=== PATIENT | female | born 1955 | race Caucasian/White ===

== ENCOUNTER 2019-03-04 11:30 | Emergency (ER) | payer OTHER, MEDICAID ==
[~2019-03-04] VITALS: Ht 152.4 cm; Wt 68.5 kg
--- NOTE | 2019-03-04 11:50 | NUR ---
PATIENT BIB W/C TO ER BED 5.
[2019-03-04 12:00] VITALS: BP 139/43
--- NOTE | 2019-03-04 12:12 | NUR ---
BIB RESEARCH AND DEVELOPMENT SCIENTIST FROM [facility] WITH C/O RT FOOT HEMATOMA AND BL LOWER/UPPER EXTREMITY RASH X 3 WKS. DENIES INJURY OR SOB HX; PROFOUND INTELLECTUAL DISABILITY, ENCEPHALOPATHY, SPASTIC QUAD, SEIZURE, FEMUR FX RX; ASA, FE SULFATE, LEVOTHYROXIN - . DENIES N/V/D; SKIN IS PINK/WARM/DRY; AWAKE,ALERT. LUNGS CLEAR BL; HR EVEN AND REGULAR; PT DENIES ANY FEVER, CP, SOB, OR COUGH AT THIS TIME; VSS; PATIENT POSITIONED FOR COMFORT; HOB ELEVATED; BEDRAILS UP X2; BED DOWN. ER MD MADE AWARE OF PT STATUS. CAREGIVER AT BEDSIDE.
--- NOTE | 2019-03-04 12:44 | NUR ---
liquified natural gas technician at bedside.
--- NOTE | 2019-03-04 12:51 | NUR ---
DR. BENEDICT BEDSIDE WITH PT
[2019-03-04 13:25] LABS: BASOPHILS # (AUTO) 0.1 K/uL (0.00-0.22); BASOPHILS % (AUTO) 0.5 % (0.0-2.0); EOSINOPHILS # (AUTO) 0.1 K/uL (0-0.4); EOSINOPHILS % (AUTO) 0.5 % (0.0-4.0); HEMATOCRIT 31.6 % (36-48); HEMOGLOBIN 10.5 g/dL (12.0-16.0); LYMPHOCYTES % (AUTO) 24.9 % (20.5-51.1); MEAN CORPUSCULAR HEMOGLOBIN 31 pg (27-31); MEAN CORPUSCULAR HGB CONC 33 g/dL (33-37); MONOCYTES % (AUTO) 8.2 % (1.7-9.3); NEUTROPHILS # (AUTO) 7.9 K/uL (1.8-7.7); NEUTROPHILS % (AUTO) 65.9 % (42.2-75.2); PLATELET COUNT (AUTO) 316 K/uL (140-450); RED CELL DISTRIBUTION WIDTH 13.6 % (11.6-13.7)
[2019-03-04 13:30] LABS: ANION GAP 10.5 (8-16); CARBON DIOXIDE 27.9 mmol/L (21-32); CREATININE 0.5 mg/dL (0.6-1.3); POTASSIUM 4.4 mmol/L (3.5-5.1)
[2019-03-04 13:36] LABS: ALBUMIN 2.4 g/dL (3.4-5.0); TOTAL BILIRUBIN 0.1 mg/dL (0.0-1.0)
--- NOTE | 2019-03-04 14:00 | NUR ---
PATIENT RESTING AT THIS TIME; NO SIGNS OF DISTRESS.
[2019-03-04 15:17] LABS: APPEARANCE,URINE CLEAR (CLEAR); BILIRUBIN,URINE NEGATIVE (NEGATIVE); BLOOD, URINE 1+ (NEGATIVE); COLOR,URINE YELLOW (YELLOW); LEUKOCYTE ESTERASE ,URINE NEGATIVE (NEGATIVE); NITRITE, URINE NEGATIVE (NEGATIVE); PH,URINE 7.5 (5.0-9.0); UGLUCOSE NEGATIVE (NEGATIVE)
[2019-03-04 15:39] LABS: WBC,URINE 0-5 /HPF (0-5)
--- NOTE | 2019-03-04 16:30 | NUR ---
PATIENT RESTING AT THIS TIME. NO SIGNS OF DISTRESS.
[2019-03-04 17:35] VITALS: BP 127/88
--- NOTE | 2019-03-04 17:35 | NUR ---
Patient discharged with v/s stable. Written and verbal after care instructions given and explained. Patient verbalized understanding. Ambulatory with steady gait. All questions addressed prior to discharge. Advised to follow up with PMD.
== END 2019-03-04 17:35 | disposition home or self-care (01) ==
LOC: MED 11:30
DX: M79.671 Pain in right foot (principal); R21 Rash and other nonspecific skin eruption; M79.89 Other specified soft tissue disorders
CPT/HCPCS: 36415; 73630; 80053; 81001; 84443; 85025; 85730; 93970; 99284; Q0092

== ENCOUNTER 2020-04-02 12:50 | Emergency (ER) | payer OTHER, MEDICAID ==
[~2020-04-02] VITALS: Ht 152.4 cm; Wt 67.1 kg
[2020-04-02 12:59] VITALS: BP 122/54
--- NOTE | 2020-04-02 13:10 | NUR ---
WAIT AT LOBBY.
--- NOTE | 2020-04-02 13:28 | NUR ---
PT BIB CAREGIVER ON WHEELCHAIR TO BED 7.
--- NOTE | 2020-04-02 13:41 | NUR ---
65 Y/F PRESENTS TO ED WITH CAREGIVER FOR R THIGH ABCESS X 10 DAYS. CAREGIVER REPORTS IT STARTED DRAINING ON THURSDAY, BROWN DISCHARGE. PT WAS GIVEN ATB OF BACTRIM BY HOME HEALTH MD ON 03/27, LAST DOSE IS TOMORROW. WOUND IS ABOUT 4CM DEEP. WARM TO TOUCH, ERYTHEMA AROUND ABCESS. CAREGIVER DENIES ANY N/F/V/ CHILLS, SOB. PMH- SEVERE ID, ENCEPHALOPATHY, CONSTIPATION, SEIZURE, H/O PNEUMONIA, QUADRIPLEGIA, MILD ASPIRATION RISK, MYOPIA ALLERGIES-PHENOBARBITAL Addendum: 04/02/20 at 1342 by MED HARDENING NOTED AROUND ABCESS.
--- NOTE | 2020-04-02 13:47 | NUR ---
DR PAUL AT BEDSIDE EVALUATING PATIENT.
[2020-04-02] MEDS ORDERED: BACITRACIN OINT 500 UNITS/GM PKT TP ONE ×3 (13:50→14:00)
--- NOTE | 2020-04-02 13:51 | NUR ---
ISLAND DRESSING PLACED OVER PT WOUND ON R THIGH AFTER BACITRACIN APPLIED.
[2020-04-02 14:05] VITALS: BP 122/54
--- NOTE | 2020-04-02 14:05 | NUR ---
Patient discharged with v/s stable. Written and verbal after care instructions given and explained. Patient alert, oriented and verbalized understanding of instructions. Wheel Chair Assisted with by caregiver. All questions addressed prior to discharge. ID band removed. Patient advised to follow up with PMD. Rx of KEFLEX AND BACITRACIN given. Patient educated on indication of medication including possible reaction and side effects. Opportunity to ask questions provided and answered.
== END 2020-04-02 14:05 | disposition home or self-care (01) ==
LOC: MED 12:50
DX: L02.91 Cutaneous abscess, unspecified (principal); R56.9 Unspecified convulsions; Z88.8 Allergy status to other drugs, medicaments and biological substances
CPT/HCPCS: 99282

== ENCOUNTER 2020-07-12 12:51 | Emergency (ER) | payer OTHER, MEDICAID ==
[~2020-07-12] VITALS: Ht 152.4 cm; Wt 72.6 kg
[2020-07-12 12:58] VITALS: BP 127/51
--- NOTE | 2020-07-12 13:09 | NUR ---
PATIENT ASSISTED TO BED 5 VIA WHEELCHAIR.
--- NOTE | 2020-07-12 14:03 | NUR ---
C/O CHRONIC R KNEE PAIN POST BREAK MANY YEARS AGO. NO SWELLING OR DEFORMITY NOTED. CAREGIVER GAVE TYLENOL THIS AM. STATES PT HAD PAIN RELIEF FOR 2 HOURS AND THEN PAIN RETURNED. PT ALSO HAS HEALING WOUND THAT IS RED IN APPEARANCE TO UPPER R THIGH. CAREGIVER ADDS REDNESS & SWELLING TO RIGHT MIDDLE FINGER X TODAY. UNKNOWN CAUSE. PT FROM SNF WITH CAREGIVER. MENTAL DISABILITY, SEIZURE DISORDER, QUAD, WHEELCHAIR BOUND, FOOT ULCERS, ...
[2020-07-12] MEDS ORDERED: IBUPROFEN 600 MG TAB PO ONE (14:05)
--- NOTE | 2020-07-12 14:06 | NUR ---
FLACC 4
--- NOTE | 2020-07-12 14:20 | NUR ---
RAD AT BEDSIDE
[2020-07-12] MEDS ORDERED: CRUSHER, PILL MC ONE (14:21)
--- NOTE | 2020-07-12 14:33 | NUR ---
LAB AT BEDSIDE
[2020-07-12 14:51] LABS: BASOPHILS # (AUTO) 0.1 K/uL (0.00-0.22); BASOPHILS % (AUTO) 0.6 % (0.0-2.0); EOSINOPHILS # (AUTO) 0.1 K/uL (0-0.4); EOSINOPHILS % (AUTO) 0.4 % (0.0-4.0); HEMATOCRIT 36.1 % (36-48); HEMOGLOBIN 12.2 g/dL (12.0-16.0); LYMPHOCYTES # (AUTO) 4.1 K/uL (2.5-16.5); LYMPHOCYTES % (AUTO) 32.2 % (20.5-51.1); MEAN CORPUSCULAR HEMOGLOBIN 32 pg (27-31); MEAN CORPUSCULAR HGB CONC 34 g/dL (33-37); MEAN CORPUSCULAR VOLUME 96.1 fL (80-94); MONOCYTES # (AUTO) 1.1 K/uL (0.8-1.0); MONOCYTES % (AUTO) 8.9 % (1.7-9.3); NEUTROPHILS # (AUTO) 7.4 K/uL (1.8-7.7); NEUTROPHILS % (AUTO) 57.9 % (42.2-75.2); PLATELET COUNT (AUTO) 288 K/uL (140-450); RED BLOOD CELL COUNT(AUTO) 3.76 MIL/uL (4.20-5.40); RED CELL DISTRIBUTION WIDTH 13.5 % (11.6-13.7); WHITE BLOOD COUNT (AUTO) 12.8 K/uL (4.8-10.8)
--- NOTE | 2020-07-12 14:55 | NUR ---
MOTRIN PO CRUSHED AND ADMINISTERED WITH APPLESAUCE
[2020-07-12 15:04] LABS: ANION GAP 13.8 (8-16); CARBON DIOXIDE 25.5 mmol/L (21-32); CREATININE 0.8 mg/dL (0.6-1.3); POTASSIUM 4.3 mmol/L (3.5-5.1)
--- NOTE | 2020-07-12 15:48 | NUR ---
JOSIAH BURRISR, PAIN 01/09
[2020-07-12 15:53] VITALS: BP 130/67
--- NOTE | 2020-07-12 15:53 | NUR ---
Patient discharged with v/s stable. Written and verbal after care instructions given and explained. Patient alert, oriented and verbalized understanding of instructions. Wheel Chair Assisted with by caregiver. All questions addressed prior to discharge. ID band removed. Patient advised to follow up with PMD. Rx of MOTRIN AND CEPHALEXIN given. Patient educated on indication of medication including possible reaction and side effects. Opportunity to ask questions provided and answered. CAREGIVER SIGNED DISCHARGE PAPERWORK
== END 2020-07-12 15:53 | disposition home or self-care (01) ==
LOC: MED 12:51
DX: L03.011 Cellulitis of right finger (principal); M25.561 Pain in right knee; L98.499 Non-pressure chronic ulcer of skin of other sites with unspecified severity; R25.2 Cramp and spasm
CPT/HCPCS: 36415; 73562; 80048; 85025; 86140; 99284; Q0092

== ENCOUNTER 2020-11-10 10:31 | Emergency (ER) | payer OTHER, MEDICAID ==
[~2020-11-10] VITALS: Ht 157.5 cm; Wt 90.7 kg
[2020-11-10 10:47] VITALS: BP 112/79
--- NOTE | 2020-11-10 10:58 | NUR ---
Dr. Javed at pt bedside.
--- NOTE | 2020-11-10 11:05 | NUR ---
Pt bib vessel scrapper for high BP, pulse 169/82 at home per caregiver, and headache since 0500 today. medhx: ID, encephalopathy, seizure NKA
[2020-11-10] MEDS ORDERED: NACL 0.9% 1,000 ML IV SCH (11:25)
--- NOTE | 2020-11-10 11:50 | NUR ---
EMT at bedside for EKG.
--- NOTE | 2020-11-10 11:58 | NUR ---
agricultural technical officer at pt bedside.
--- NOTE | 2020-11-10 12:04 | NUR ---
business technology analyst at pt bedside.
--- NOTE | 2020-11-10 12:28 | NUR ---
Pt taken via chancerfran to XR
[2020-11-10 12:43] LABS: BASOPHILS % (AUTO) 0.5 % (0.0-2.0); EOSINOPHILS % (AUTO) 0.4 % (0.0-4.0); HEMATOCRIT 40.1 % (36-48); HEMOGLOBIN 13.3 g/dL (12.0-16.0); LYMPHOCYTES # (AUTO) 3.1 K/uL (2.5-16.5); LYMPHOCYTES % (AUTO) 34.8 % (20.5-51.1); MEAN CORPUSCULAR HEMOGLOBIN 32 pg (27-31); MEAN CORPUSCULAR HGB CONC 33 g/dL (33-37); MEAN CORPUSCULAR VOLUME 95.9 fL (80-94); MONOCYTES # (AUTO) 0.6 K/uL (0.8-1.0); MONOCYTES % (AUTO) 6.9 % (1.7-9.3); NEUTROPHILS # (AUTO) 5.1 K/uL (1.8-7.7); NEUTROPHILS % (AUTO) 57.4 % (42.2-75.2); PLATELET COUNT (AUTO) 280 K/uL (140-450); RED BLOOD CELL COUNT(AUTO) 4.18 MIL/uL (4.20-5.40); RED CELL DISTRIBUTION WIDTH 13.2 % (11.6-13.7); WHITE BLOOD COUNT (AUTO) 8.9 K/uL (4.8-10.8)
[2020-11-10 13:24] LABS: ANION GAP 10.7 (8-16); CARBON DIOXIDE 29.8 mmol/L (21-32); CREATININE 0.6 mg/dL (0.6-1.3); POTASSIUM 4.5 mmol/L (3.5-5.1); TOTAL BILIRUBIN 0.2 mg/dL (0.0-1.0)
[2020-11-10] MEDS ORDERED: MORPHINE SULFATE 4 MG/ML SYR IVP ONE (14:10)
--- NOTE | 2020-11-10 14:37 | NUR ---
Pt resting, eyes closed, visible equal and rise of chest, VSS, will continue to monitor. Pt caregiver at bedside.
[2020-11-10 15:32] VITALS: BP 139/52
--- NOTE | 2020-11-10 15:33 | NUR ---
Patient discharged with v/s stable. Written and verbal after care instructions given and explained. Patient alert, oriented and verbalized understanding of instructions. Wheel Chair Assisted with by caregiver. All questions addressed prior to discharge. ID band removed. Patient advised to follow up with PMD. Rx of norco 5mg-325mg 1 to 2 tab q6h PO, and motrin 800mg tab TID PO given. Patient educated on indication of medication including possible reaction and side effects. Opportunity to ask questions provided and answered.
[2020-11-10 23:28] LABS: APPEARANCE,URINE HAZY (CLEAR); BILIRUBIN,URINE NEGATIVE (NEGATIVE); BLOOD, URINE 3+ (NEGATIVE); COLOR,URINE YELLOW (YELLOW); LEUKOCYTE ESTERASE ,URINE NEGATIVE (NEGATIVE); NITRITE, URINE NEGATIVE (NEGATIVE); UGLUCOSE NEGATIVE (NEGATIVE)
[2020-11-10 23:45] LABS: RBC,URINE 50-80 /HPF (0-5)
== END 2020-11-10 15:33 | disposition home or self-care (01) ==
LOC: MED 10:31
DX: R51.9 Headache, unspecified (principal); I10 Essential (primary) hypertension; Z88.8 Allergy status to other drugs, medicaments and biological substances
CPT/HCPCS: 36415; 70450; 71045; 80053; 81001; 83605; 83880; 84484; 85025; 87040; 87086; 93005; 96374; 99285; J2270

== ENCOUNTER 2022-11-19 09:46 | Inpatient (IN) | payer OTHER, MEDICAID ==
[~2022-11-19] VITALS: Ht 162.6 cm; Wt 84.8 kg
--- NOTE | 2022-11-19 09:47 | NUR ---
BIBA BLS TO ER BED 4
[2022-11-19] MEDS ORDERED: ACETAMINOPHEN EXTRA STRENGTH 500 MG TAB PO ONE (09:55)
[2022-11-19 09:56] VITALS: BP 118/72
--- NOTE | 2022-11-19 10:21 | NUR ---
PT WAS TAKEN TO CT.
--- NOTE | 2022-11-19 10:48 | NUR ---
CT DONE. TRIED TO MEDICATE PT. PT REFUSED. PLUS, PT WILL NO FOLLOW COMMAND, MAY CHOCK.
[2022-11-19] MEDS ORDERED: LIDOCAINE/EPI 2% 1:100000 20 ML VIAL INJ ONE (11:15)
[2022-11-19] MEDS ORDERED: MORPHINE SULFATE 4 MG/ML SYR IVP ONE ×2 (11:20→14:45)
[2022-11-19] MEDS ORDERED: ONDANSETRON 4 MG/2 ML VIAL IVP ONE ×2 (11:20→14:45)
[2022-11-19] MEDS ORDERED: LORazepam 2 MG/ML VIAL IVP ONE (12:20)
[2022-11-19] MEDS ORDERED: HALOPERIDOL IM 5 MG/ML VIAL IVP ONE (12:20)
[2022-11-19] MEDS ORDERED: diphenhydrAMINE 50 MG/ML VIAL IVP ONE (12:20)
[2022-11-19] MEDS ORDERED: HALOPERIDOL 5 MG TAB PO ONE (12:20)
[2022-11-19 12:49] LABS: HEMATOCRIT 38.3 % (36-48); HEMOGLOBIN 12.6 g/dL (12.0-16.0); MEAN CORPUSCULAR HEMOGLOBIN 32 pg (27-31); MEAN CORPUSCULAR HGB CONC 33 g/dL (33-37); MEAN CORPUSCULAR VOLUME 96.7 fL (80-94); PLATELET COUNT (AUTO) 241 K/uL (140-450); RED BLOOD CELL COUNT(AUTO) 3.96 MIL/uL (4.20-5.40); RED CELL DISTRIBUTION WIDTH 13.6 % (11.6-13.7); WHITE BLOOD COUNT (AUTO) 18.4 K/uL (4.8-10.8)
[2022-11-19 12:58] LABS: PROTHROMBIN TIME 9.6 secs (10.8-13.4)
[2022-11-19 13:04] LABS: ALBUMIN 2.9 g/dL (3.4-5.0); ANION GAP 16.1 (8-16); CARBON DIOXIDE 25.3 mmol/L (21-32); CREATININE 0.7 mg/dL (0.6-1.3); POTASSIUM 4.4 mmol/L (3.5-5.1); TOTAL BILIRUBIN 0.2 mg/dL (0.0-1.0)
[2022-11-19 13:12] LABS: LYMPHOCYTES % (MANUAL) 16 % (20-46)
[2022-11-19 13:13] LABS: MONOCYTES % (MANUAL) 1 % (5-12)
[2022-11-19] MEDS ORDERED: BACITRACIN OINT 500 UNITS/GM PKT TP ONE (13:35)
[2022-11-19] MEDS ORDERED: NON ADHERENT DRESSING TP SCH (13:35)
[2022-11-19] MEDS ORDERED: BACI-416 TP (13:43)
[2022-11-19] MEDS ORDERED: CEPH-588 PO (13:43)
[2022-11-19] MEDS ORDERED: ACET-10509 PO (13:43)
--- NOTE | 2022-11-19 14:21 | NUR ---
PT INITIALLY D/C'D HOME BY ED MD. BUT HR WAS HIGH 125. MD NOTIFIED. XRAY WAS ORDERED AND CONDUCTED BEDSIDE.
[2022-11-19] MEDS ORDERED: NACL 0.9% 1,000 ML IV ONE (14:35)
[2022-11-19] MEDS ORDERED: cefTRIAXone 1,000 MG VIAL ONE (14:52)
[2022-11-19 14:54] LABS: APPEARANCE,URINE CLEAR (CLEAR); BILIRUBIN,URINE NEGATIVE (NEGATIVE); BLOOD, URINE NEGATIVE (NEGATIVE); COLOR,URINE YELLOW (YELLOW); LEUKOCYTE ESTERASE ,URINE NEGATIVE (NEGATIVE); NITRITE, URINE NEGATIVE (NEGATIVE); UGLUCOSE NEGATIVE (NEGATIVE)
[2022-11-19] MEDS ORDERED: KCL 20 MEQ/WATER INJ PREMIX 200 ML IV PRN (15:00)
[2022-11-19] MEDS ORDERED: HYDROcodone/APAP 5/325 MG 1 TAB TAB PO PRN (15:00)
[2022-11-19] MEDS ORDERED: POTASSIUM CHLORIDE 10 MEQ TABER PO PRN (15:00)
[2022-11-19] MEDS ORDERED: ZOLPIDEM 5 MG TAB PO PRN (15:00)
[2022-11-19] MEDS ORDERED: ONDANSETRON 4 MG/2 ML VIAL IVP PRN (15:00)
[2022-11-19] MEDS ORDERED: MAG SULF 2000 MG/WATER PREMIX 50 ML IV PRN (15:00)
[2022-11-19] MEDS ORDERED: LEVE750T66 PO (15:33)
[2022-11-19] MEDS ORDERED: MAGN400S60 PO (15:33)
[2022-11-19] MEDS ORDERED: BISA-213 RC (15:33)
[2022-11-19] MEDS ORDERED: VALP-22 GT (15:33)
[2022-11-19] MEDS ORDERED: TRAM50TA3 PO (15:33)
[2022-11-19] MEDS ORDERED: LACO100T PO (15:33)
[2022-11-19] MEDS ORDERED: TRAZ-343 PO (15:33)
[2022-11-19] MEDS: NACL 0.9% 1,000 ML IV SCH (15:47)
--- NOTE | 2022-11-19 15:50 | NUR ---
PT GOT ROOM 121A. PT WAS SENT TO FLOOR IN [facility] WITH EMT, TADEO. REPORT ENDORSED BEDSIDE TO DEZ CULLEN.
[2022-11-19 16:00] VITALS: BP 124/67
--- NOTE | 2022-11-19 16:47 | NUR ---
RECEIVE REPORT FROM ER NURSE THAT PATIENT COME FROM [facility] FOR S/P FALL FROM HOLTER LEFT WITH NEW FRACTURE OF R.PATELLA, DISTAL HEAD OF TIBIAL & PROXIMAL FIBULAR SHIFT. PATIENT IS FULL CODE AND HAS HX OF CEREBRAL PALSY W/ PARAPLEGIA, ALLERGY TO PHENOBARBITAL, BED BOUND; FIRST DOSE OF UNASYN AND ROCEPHIN GIVEN IN ER., R.PIV AT r. UPPER ARM INFUSING NS @50ML/HR. ON REGULAR DIET, ALERT X0, TACHYCARDIA, ON ROOM AIR. WILL CONTINUE TO MONITOR
[2022-11-19] MEDS ORDERED: AMPICILLIN/SULBACTAM 3 GM in NACL 0.9% 100 ML IV SCH (18:00)
[2022-11-19] MEDS: AMPICILLIN/SULBACTAM 3 GM in NACL 0.9% 100 ML IV SCH (18:16)
--- NOTE | 2022-11-19 19:25 | NUR ---
RECEIVED ENDORSEMENT FROM DAY SHIFT NURSE FOR CONTINUITY OF CARE. PT IS ON BED SLEEPING BUT AROUSABLE ON STIMULI. NOTED LACERATION ON RIGHT FOREHEAD WITH STITCHES. DRY BLOOD NOTED IS COVERING A PARTS OF LACERATION. DINNER TRAYS ON BEDSIDE TABLE UNTOUCHED. OFFER DINNER FOOD TO PT, PT REFUSED, SHE TOOK A SMALL SPOON ONLY. SHE REFUSED ALL FOOD OFFERED. PT NOTED CONFUSED. PT IS WITH REGULAR DIET. IV LOCK IS ON LEFT UPPER ARM. RIGHT KNEE IS WRAP UP WITH DRY BANDAGE.
--- NOTE | 2022-11-19 19:32 | NUR ---
ENDORSE PATIENT TO PM SHIFT NURSE WHILE PATIENT IS REST IN BED, UNASYN GIVEN VIA PIV AT L. UPPER ARM ; CURRENT INFUSING NS @50ML/HR.
[2022-11-19 20:00] VITALS: BP 135/66
[2022-11-19] MEDS ORDERED: LEVETIRACETAM PO SCH (21:00)
[2022-11-19] MEDS ORDERED: traZODone 50 MG TAB PO PRN (21:00)
[2022-11-19] MEDS: levETIRAcetam 500 MG TAB PO SCH (21:05)
--- NOTE | 2022-11-19 21:05 | NUR ---
NIGHT MEDICATION ADMINISTERED, PT TOLERATES WELL. PT NOTED CONFUSED. NO FACIAL GRIMACING. NO SOB OR DISTRESS. PT BACK TO SLEEP AFTER TAKING THE MEDS.
[2022-11-20] VITALS: BP 138/83
[2022-11-20] MEDS: AMPICILLIN/SULBACTAM 3 GM in NACL 0.9% 100 ML IV SCH ×4 (00:34→18:29)
--- NOTE | 2022-11-20 00:34 | NUR ---
MIDNIGHT IV MEDICATION ADMINISTERED, PT IS ON STABLE CONDITION. TOLERATES WELL.
[2022-11-20] MEDS: NACL 0.9% 1,000 ML IV SCH ×2 (03:30→16:00)
[2022-11-20 04:00] VITALS: BP 129/63
--- NOTE | 2022-11-20 04:00 | NUR ---
PT ASLEEP. NO SOB OR DISTRESS.
[2022-11-20 06:13] LABS: ANION GAP 13.1 (8-16); CARBON DIOXIDE 27.1 mmol/L (21-32); CREATININE 0.6 mg/dL (0.6-1.3); POTASSIUM 4.2 mmol/L (3.5-5.1)
[2022-11-20] MEDS: ACETAMINOPHEN 325 MG TAB PO PRN ×2 (06:42→20:35)
--- NOTE | 2022-11-20 06:42 | NUR ---
PT COMPLAINTS OF HEADACHE, MEDICATION FOR HEADACHE ADMINISTERED ORDER.
--- NOTE | 2022-11-20 07:20 | NUR ---
PT IS ON STABLE CONDITION. ALL SAFETY MEASURES ARE IN PLACE. ENDORSED TO DAY SHIFT NURSE FOR CONTINUITY OF CARE
[2022-11-20 07:26] LABS: BASOPHILS % (AUTO) 0.3 % (0.0-2.0); EOSINOPHILS % (AUTO) 0.1 % (0.0-4.0); HEMATOCRIT 34.9 % (36-48); HEMOGLOBIN 11.6 g/dL (12.0-16.0); LYMPHOCYTES # (AUTO) 2.8 K/uL (2.5-16.5); LYMPHOCYTES % (AUTO) 27.2 % (20.5-51.1); MEAN CORPUSCULAR HEMOGLOBIN 33 pg (27-31); MEAN CORPUSCULAR HGB CONC 33 g/dL (33-37); MEAN CORPUSCULAR VOLUME 98.6 fL (80-94); MONOCYTES # (AUTO) 1.1 K/uL (0.8-1.0); MONOCYTES % (AUTO) 10.4 % (1.7-9.3); NEUTROPHILS # (AUTO) 6.3 K/uL (1.8-7.7); PLATELET COUNT (AUTO) 222 K/uL (140-450); RED BLOOD CELL COUNT(AUTO) 3.54 MIL/uL (4.20-5.40); RED CELL DISTRIBUTION WIDTH 13.8 % (11.6-13.7); WHITE BLOOD COUNT (AUTO) 10.2 K/uL (4.8-10.8)
[2022-11-20 08:00] VITALS: BP 136/71
[2022-11-20] MEDS ORDERED: NON-FORMULARY ITEM (Lacosamide (Vimpat) 100 MG) PO SCH (09:00)
[2022-11-20] MEDS: ENOXAPARIN 40 MG/0.4 ML SYR SUBQ SCH (09:00)
[2022-11-20] MEDS: levETIRAcetam 500 MG TAB PO SCH ×2 (09:00→20:34)
[2022-11-20] MEDS: LACOSAMIDE 100 MG PO SCH (09:00)
[2022-11-20] MEDS: METOPROLOL 50 MG TAB PO SCH ×2 (10:54→20:35)
--- NOTE | 2022-11-20 11:08 | NUR ---
PATIENT HAS BEEN SCREENED AND CATEGORIZED LOW NUTRITION RISK. PATIENT WILL BE SEEN WITHIN 7 DAYS OF ADMISSION. 11/26/22 REVIEWED BY NOEMI PHAM RD
[2022-11-20 12:00] VITALS: BP 139/60
[2022-11-20] MEDS: MORPHINE SULFATE 4 MG/ML SYR IVP PRN ×2 (14:53→22:55)
[2022-11-20 16:00] VITALS: BP 128/64
[2022-11-20 20:00] VITALS: BP 124/60
--- NOTE | 2022-11-20 20:30 | NUR ---
C/O JOHNSON , BP 124/60 , HR 118 - WILL MEDICATE , WILL CONT. TO MONITOR . Addendum: 11/20/22 at 2035 by Trudy Lincoln RN ARTIP Emir 78 .6F
--- NOTE | 2022-11-20 22:52 | NUR ---
C/O SEVERE PAIN , PT HAD FRACTURE SUSTAINED FROM FALL PRIOR TO ADMISSION , YELLING , BP 147/ 68 HR 118 , WILL MEDICATE
[2022-11-21] VITALS: BP 140/70
[2022-11-21] MEDS: AMPICILLIN/SULBACTAM 3 GM in NACL 0.9% 100 ML IV SCH ×3 (00:15→13:00)
--- NOTE | 2022-11-21 00:28 | NUR ---
REFER TO DR. JIMÉNEZ , SENT TO DR. JIMÉNEZ THE LATEST TELE MONITOR TRACING PERSISTENT CARDIAC FLUTTER . Addendum: 11/21/22 at 0106 by Trudy Lincoln RN PER DR. JIMÉNEZ REFER TO DR. SERRANO - I TRIED TO CALL DR. SERRANO DIRECTLY AND VIA PLANT CLERK , BUT DR. SERRANO DID NOT SECURITY SUPPORT ANALYST THE PHONE , INFORM DR. JIMÉNEZ , INFORM PEDIATRIC CNS . WILL CONT. TO MONITOR THE PT .
--- NOTE | 2022-11-21 01:22 | NUR ---
PRESS TOOL MAKER CALL ME , PER PRESS TOOL MAKER SHE TRIED KEEP CALLING TO DR. SERRANO , BUT DR. SERRANO DID NOT MANAGER WASTEWATER THE PHONE . INFORMED DR Emir JIMÉNEZ . PT IS ON O2 SAT MONITOR , O2 SAT WNL , SLEEPING BUT AWAKEABLE , ON TELE MONITOR .
[2022-11-21 04:00] VITALS: BP 124/60
[2022-11-21 05:33] LABS: BASOPHILS # (AUTO) 0.1 K/uL (0.00-0.22); BASOPHILS % (AUTO) 0.5 % (0.0-2.0); EOSINOPHILS # (AUTO) 0.1 K/uL (0-0.4); EOSINOPHILS % (AUTO) 0.7 % (0.0-4.0); HEMATOCRIT 28.1 % (36-48); HEMOGLOBIN 9.5 g/dL (12.0-16.0); LYMPHOCYTES # (AUTO) 4.3 K/uL (2.5-16.5); LYMPHOCYTES % (AUTO) 35.3 % (20.5-51.1); MEAN CORPUSCULAR HEMOGLOBIN 34 pg (27-31); MEAN CORPUSCULAR HGB CONC 34 g/dL (33-37); MEAN CORPUSCULAR VOLUME 100.7 fL (80-94); MONOCYTES # (AUTO) 1.2 K/uL (0.8-1.0); MONOCYTES % (AUTO) 10.2 % (1.7-9.3); NEUTROPHILS # (AUTO) 6.5 K/uL (1.8-7.7); NEUTROPHILS % (AUTO) 53.3 % (42.2-75.2); PLATELET COUNT (AUTO) 169 K/uL (140-450); RED BLOOD CELL COUNT(AUTO) 2.79 MIL/uL (4.20-5.40); RED CELL DISTRIBUTION WIDTH 13.7 % (11.6-13.7); WHITE BLOOD COUNT (AUTO) 12.1 K/uL (4.8-10.8)
--- NOTE | 2022-11-21 06:13 | NUR ---
INCREASE PT'S IVF RATE TO 100CC/HR . ORDERED BY DR. JIMÉNEZ , WILL CONT. TO MONITOR .
[2022-11-21] MEDS: NACL 0.9% 1,000 ML IV SCH (06:18)
--- NOTE | 2022-11-21 06:29 | NUR ---
SENT VIA PHOTO SCREEN SHOT THE LATEST STAT EKG TO DR. JIMÉNEZ AND DR. SERRANO . RE INFORMED DR. SERRANO ABOUT THE REFERRAL . FOR CLOSELY WATCH .
[2022-11-21 06:35] LABS: ANION GAP 13.7 (8-16); CARBON DIOXIDE 25.4 mmol/L (21-32); CREATININE 0.5 mg/dL (0.6-1.3); POTASSIUM 4.1 mmol/L (3.5-5.1)
[2022-11-21] MEDS ORDERED: NACL 0.9% 1,000 ML IV SCH (07:15)
--- NOTE | 2022-11-21 07:36 | NUR ---
WHILE BEDSIDE ENDORSING , I GIVE THE IVF 1L BOLUS STAT - I ENDORSE TO SITA THE STAT 1 LITER NSS BOLUS IS ONLY 1 DOSE AFTER THE BOLUS SHIFT BACK THE IVF AT 100CC SAME SITA SNIDER, RN VERBALIZES UNDERSTANDING . Addendum: 11/21/22 at 0808 by Trudy Lincoln RN ENDORSED TO AM NURSE SHE HAVE TO FF UP THE REFERRAL TO DR. SERRANO I TRIED TO CALL AGAIN DR. SERRANO BUT NO RESPONSE YET AT THIS TIME , DR. SERRANO DID NOT EVEN ANSWER MY TEXT G , DR. JIMÉNEZ AWARE ABOUT IT ., AM NURSE VERBALIZES UNDERSTANDING . PT FULLY AWAKE .
[2022-11-21] MEDS: levETIRAcetam 500 MG TAB PO SCH (08:38)
[2022-11-21] MEDS: METOPROLOL 50 MG TAB PO SCH (08:39)
[2022-11-21] MEDS: LACOSAMIDE 100 MG PO SCH (08:40)
[2022-11-21] MEDS: ENOXAPARIN 40 MG/0.4 ML SYR SUBQ SCH (08:41)
[2022-11-21] MEDS: MORPHINE SULFATE 4 MG/ML SYR IVP PRN (08:42)
[2022-11-21] MEDS ORDERED: AMOX-1230 PO (10:08)
[2022-11-21 11:41] VITALS: BP 138/81
[2022-11-21 15:54] VITALS: BP 138/81
--- NOTE | 2022-11-21 16:00 | NUR ---
DC PLANNING: PATIENT WILL BE RETUNING TO [facility] ROOM 28A. ARRANGED TRANSPORT WITH [facility] INTERNATIONAL RECRUITER TIME 4 PM. CM TO FOLLOW
--- NOTE | 2022-11-21 16:27 | NUR ---
PATIENT DISCHARGED TO [facility]. TRANSPORTED VIA [facility]. STABLE UPON DISCHARGE
== END 2022-11-21 16:28 | DRG 872 ==
LOC: MED 09:46 → MTU 15:00
PROVIDERS: ADMIT Internal Medicine; ATTEND Internal Medicine
PROC: 3E0234Z Introduction of Serum, Toxoid and Vaccine into Muscle, Percutaneous Approach (ICD-10-PCS; principal; 2022-11-19)
PROC: 0HQ1XZZ Repair Face Skin, External Approach (ICD-10-PCS; 2022-11-19)
PROC: 2W3LX1Z Immobilization of Right Lower Extremity using Splint (ICD-10-PCS; 2022-11-20)
DX: A41.9 Sepsis, unspecified organism (principal); S82.231A Displaced oblique fracture of shaft of right tibia, initial encounter for closed fracture; S82.031A Displaced transverse fracture of right patella, initial encounter for closed fracture; S01.01XA Laceration without foreign body of scalp, initial encounter; X58.XXXA Exposure to other specified factors, initial encounter; R56.9 Unspecified convulsions; Z20.822 Contact with and (suspected) exposure to COVID-19; J01.00 Acute maxillary sinusitis, unspecified; Y93.89 Activity, other specified; D72.829 Elevated white blood cell count, unspecified; Y92.89 Other specified places as the place of occurrence of the external cause; Y99.8 Other external cause status; Z23 Encounter for immunization
CPT/HCPCS: 12013; 36415; 70450; 71045; 73560; 80048; 80053; 81003; 83735; 85025; 85610; 85730; 87081; 90471; 90715; 93005; 96374; 99285; J0295; J0696; J1200; J1630; J1650; J2001; J2060; J2270; J2405